=== PATIENT | female | born 1960 | race Caucasian/White ===

== ENCOUNTER 2019-09-22 10:31 | Day surgery (SDC) | payer MEDICARE ==
[~2019-09-22] VITALS: Ht 175.3 cm; Wt 127.3 kg
[2019-09-22 11:22] VITALS: BP 118/55
[2019-09-22] MEDS ORDERED: SODIUM CHLORIDE 0.9% 1,000 ML IV ONE (11:30)
[2019-09-22] MEDS ORDERED: PLEASE ENTER HEIGHT AND WEIGHT MC SCH (11:30)
[2019-09-22] MEDS ORDERED: MONT10TA11 PO (11:36)
[2019-09-22] MEDS ORDERED: FURO20TA3 PO (11:36)
[2019-09-22] MEDS ORDERED: DIVA-59 PO (11:36)
[2019-09-22] MEDS ORDERED: RANI150C PO (11:36)
[2019-09-22] MEDS ORDERED: NAPR500T8 PO (11:36)
[2019-09-22] MEDS ORDERED: FLUO60TA PO (11:36)
[2019-09-22] MEDS ORDERED: ROPI4TAB8 PO (11:36)
[2019-09-22] MEDS ORDERED: FLUO20CA23 PO (11:36)
[2019-09-22] MEDS ORDERED: BUTA-177 PO (11:36)
[2019-09-22] MEDS ORDERED: METH750T2 PO (11:36)
[2019-09-22] MEDS ORDERED: DILT120C80 PO (11:36)
[2019-09-22] MEDS ORDERED: ZINC50CA PO (11:36)
[2019-09-22] MEDS ORDERED: RIVA20TA PO (11:36)
[2019-09-22] MEDS ORDERED: LISI1TAB20 PO (11:36)
[2019-09-22] MEDS ORDERED: BIOT1CAP3 PO (11:44)
[2019-09-22] MEDS ORDERED: PROPOFOL 10 MG/ML, 20ML ONE (12:10)
== END 2019-09-22 13:30 | disposition home or self-care (01) ==
LOC: CACL 10:31
PROVIDERS: ATTEND Internal Medicine Cardiovascular Disease
DX: I48.91 Unspecified atrial fibrillation (principal); I48.92 Unspecified atrial flutter; I34.0 Nonrheumatic mitral (valve) insufficiency; I70.0 Atherosclerosis of aorta; I10 Essential (primary) hypertension; G25.81 Restless legs syndrome; J45.909 Unspecified asthma, uncomplicated; G40.909 Epilepsy, unspecified, not intractable, without status epilepticus; F31.9 Bipolar disorder, unspecified; M79.7 Fibromyalgia; E66.3 Overweight; Z68.41 Body mass index [BMI] 40.0-44.9, adult; Z79.01 Long term (current) use of anticoagulants; Z79.899 Other long term (current) drug therapy; Z87.891 Personal history of nicotine dependence; Z88.0 Allergy status to penicillin; Z88.5 Allergy status to narcotic agent; Z99.81 Dependence on supplemental oxygen; Z98.890 Other specified postprocedural states; Z82.49 Family history of ischemic heart disease and other diseases of the circulatory system
CPT/HCPCS: 92960; 93312; 93321; 93325; J2704